=== PATIENT | male | born 1990 | race Caucasian/White ===

== ENCOUNTER 2017-12-13 17:59 | Emergency (ER) | END 2017-12-13 19:37 | disposition home or self-care (01) ==

== ENCOUNTER 2018-05-15 15:22 | Emergency (ER) | END 2018-05-15 17:03 | disposition home or self-care (01) ==

== ENCOUNTER 2018-05-17 08:23 | Emergency (ER) | END 2018-05-17 10:00 | disposition home or self-care (01) ==

== ENCOUNTER 2018-09-13 05:14 | Emergency (ER) | payer OTHER ==
[~2018-09-13] VITALS: Ht 180.3 cm; Wt 90.7 kg
[~2018-09-13 05:14] MED LIST: ACET-141 PO; CLOT30CR24 TOP; HYDR-4011 PO; IBUP-1542 PO; LIDO30CR2 TP; MUPI22OI2 TOP; NAPR-985 PO
[2018-09-13 05:17] VITALS: Ht 180.3 cm; Wt 90.7 kg
[2018-09-13] MEDS ORDERED: IBUPROFEN 600 MG TAB PO ONE (07:30)
[2018-09-13] MEDS ORDERED: HYDROCODONE/APAP (5/325) TAB PO ONE ×2 (08:00→09:30)
[2018-09-13] MEDS ORDERED: HYDR-4011 PO (09:10)
[2018-09-13] MEDS ORDERED: IBUP-1542 PO (09:10)
--- NOTE | 2018-09-13 09:16 | ERD ---
ER Documentation Chief Complaint Chief Complaint pain/swelling right hand, states punched a wall about 1 hour ago HPI 28-year-old male presents for right hand pain status post punching a wall 2 hours ago. Patient states he has intermittent pain. The right hand is also swollen over the third knuckle. Pain is described as sharp. No treatments tried at home. No other modifying factors noted. No significant past medical history. ROS All systems reviewed and are negative except as per history of present illness. Medications Home Meds Active Scripts Hydrocodone/Acetaminophen ([place] 5-325 Tablet) 1 Each Tablet, 1 TAB PO Q6H PRN for PAIN, #10 TAB Prov:DILLON BLAKE DO 09/13/18 Ibuprofen* (Motrin*) 600 Mg Tab, 600 MG PO Q6H PRN for PAIN AND OR ELEVATED TEMP, #30 TAB Prov:DILLON BLAKE DO 09/13/18 Lidocaine (Lmx 4) 30 Gm Cream.gm., 30 GM TP BID, #1 Prov:VIVIAN ROBERTS PA-C 05/17/18 Hydrocodone/Acetaminophen ([place] 5-325 Tablet) 1 Each Tablet, 1 TAB PO Q6H PRN for PAIN, #7 TAB Prov:VIVIAN ROBERTS PA-C 05/17/18 Clotrimazole* (Clotrimazole* AF) 1% - 30 Gm Cream.gm., 1 APPLIC TOP BID for 7 Days, TUB Prov:VIVIAN ROBERTS PA-C 05/17/18 Mupirocin* (Bactroban*) 2% -22 Gram Oint...g., 1 APPLIC TOP BID PRN for prn for 2 Days, #1 TUB SITE OF APPLICATION: Prov:DILLON BLAKE DO 05/15/18 Acetaminophen* (Acetaminophen*) 500 MG Extra Strength Tablet, 500 MG PO Q4H PRN for PAIN AND OR ELEVATED TEMP, #30 TAB Prov:DILLON BLAKE DO 05/15/18 Ibuprofen* (Motrin*) 600 Mg Tab, 600 MG PO Q6H PRN for PAIN AND OR ELEVATED TEMP, #30 TAB Prov:DILLON BLAKE DO 05/15/18 Naproxen* (Naprosyn*) 500 Mg Tablet, 500 MG PO BID PRN for PAIN AND/OR INFLAMMATION, #30 TAB Prov:FABBY BERGER PA-C 12/13/17 Allergies Allergies: Coded Allergies: No Known Allergy (Unverified , 05/15/18) PMhx/Soc Medical and Surgical Hx: pt denies Surgical Hx History of Surgery: No Anesthesia Reaction: No Hx Neurological Disorder: No Hx Respiratory Disorders: No Hx Cardiac Disorders: No Hx Psychiatric Problems: No Hx Miscellaneous Medical Probl: Yes (R fifth metacarpal fx) Hx Alcohol Use: Yes (OOC) Hx Substance Use: Yes (MJ) Hx Tobacco Use: No Smoking Status: Never smoker FmHx Family History: No coronary disease Physical Exam Vitals Vital Signs Date Temp Pulse Resp B/P (MAP) Pulse Ox O2 O2 Flow FiO2 Time Delivery Rate 09/13/18 98.2 80 18 126/69 98 05:17 (88) Physical Exam Const: No acute distress Resp: Clear to auscultation bilaterally Cardio: Regular rate and rhythm, no murmurs Skin: No petechiae or rashes Back: No midline or flank tenderness Neur: Awake and alert Psych: Normal Mood and Affect Upper Extremity - bilateral: Skin: No laceration, right hand swelling over the third knuckle area. Compartments: Soft Motor: Full active range of motion shoulder/elbow/wrist, decrease motion of the second and third finger Sensation: Intact shoulder/pinky/middle finger/thumb web space Bones: Nontender humerus/elbow/forearm/wrist, there is tenderness patient over the third metacarpal area Snuffbox: Tender to palpation Joints: Swelling noted over the third knuckle area. Pulses/Perfusion: 2+ radial, Capillary refill < 2 seconds Results 24 hrs Current Medications Medications Dose Sig/Rosita Start Time Status Last (Trade) Ordered Route PRN Stop Time Admin Dose Reason Admin Ibuprofen 600 mg ONCE ONCE 09/13/18 DC 09/13/18 (Motrin) PO 07:30 07:10 09/13/18 07:31 1 tab ONCE ONCE 09/13/18 DC 09/13/18 Acetaminophen PO 08:00 08:06 / 09/13/18 08:01 Hydrocodone Bitart ([place] (5/325)) 1 tab ONCE ONCE 09/13/18 Acetaminophen PO 09:30 / 09/13/18 09:31 Hydrocodone Bitart ([place] (5/325)) Procedures/MDM Medical Decision Making: Differential diagnosis includes but not limited to fracture, dislocation, muscle strain, ligamentous sprain. Patient appeared well on physical exam. There was tenderness over the right hand third metacarpal area Patient was neurovascularly intact ED course: Patient was given Motrin and [place]. Symptoms improved with treatment. Imaging: X-ray right hand 3V interpreted by me: Scaphoid: Normal Bones: No fracture Joints: No dislocation Foreign body: None Given right anatomic snuffbox tenderness palpation, patient twice a day thumb spica splint advised to return to the ER in 1 week for repeat x-ray of the right hand. Prescription(s): Patient given prescription for supportive medication(s) and [place] short course low-dose= Patient advised to follow up with PCP in 1-2 days. Patient advised to return to ED for new or worsening symptoms. Patient stable on discharge from the ED. The patient has been prescribed [place] during this encounter. The patient has been warned about the use of narcotics. The patient should not drive or operate heavy machinery while taking this medication. The patient was also warned about the addictive properties of narcotic medications. Narcan prescription was NOT provided given the following criteria 1. No more than 5 tablets of [place] 10 mg or 10 tablets of [place] 5 mg were prescribed. 2. Concomitant opiate and benzodiazepine prescriptions were not provided. 3. There is no obvious evidence of prior history of opiate abuse or overdose. Disclaimer: Inadvertent spelling and grammatical errors are likely due to EHR/dictation software use and do not reflect on the overall quality of patient care. Also, please note that the electronic time recorded on this note does not necessarily reflect the actual time of the patient encounter. Departure Diagnosis: Primary Impression: Injury of hand Encounter type: initial encounter Laterality: right Qualified Codes: S69.91XA - Unspecified injury of right wrist, hand and finger(s), initial encounter Condition: Fair Patient Instructions: Treating Hand Fractures, Sprain Hand Referrals: KWASI GLORIA MD (PCP) Additional Instructions: Call your primary care doctor TOMORROW for an appointment during the next 1-2 days.See the doctor sooner or return here if your condition worsens before your appointment time. Ice for swelling and pain pain medication as needed and as directed right thumb/hand place in splint to protect right scaphoid bone return to ER in one week for repeat right hand x-ray DILLON BLAKE DO Sep 13, 2018 09:16
[2018-09-13 09:31] VITALS: BP 128/76; PULSE 63; RESP 18
== END 2018-09-13 09:33 | disposition home or self-care (01) ==
LOC: FTE 05:14
DX: S69.91XA Unspecified injury of right wrist, hand and finger(s), initial encounter (principal); W22.01XA Walked into wall, initial encounter; Y92.9 Unspecified place or not applicable
CPT/HCPCS: 73130; Z7502; Z7610

== ENCOUNTER 2018-09-25 12:55 | Emergency (ER) | payer SELFPAY ==
[~2018-09-25] VITALS: Wt 89.9 kg
[2018-09-25 13:00] VITALS: BP 120/60; PULSE 80; RESP 18
== END 2018-09-25 15:00 | disposition left against medical advice (07) ==
LOC: FTE 12:55
DX: Z53.21 Procedure and treatment not carried out due to patient leaving prior to being seen by health care provider (principal)

== ENCOUNTER 2018-10-25 08:59 | Emergency (ER) | payer OTHER ==
[~2018-10-25] VITALS: Ht 177.8 cm; Wt 88.5 kg
[2018-10-25 09:02] VITALS: BP 134/63; PULSE 78; RESP 16; Ht 177.8 cm; Wt 88.5 kg
--- NOTE | 2018-10-25 09:28 | ERD ---
ER Documentation Chief Complaint Chief Complaint pt is bib family with c/o abd pain starting 2 days ago with nausea HPI 28-year-old female with no reported past medical history, recent circumcision this past Monday who presents with complaint of epigastric abdominal pain over the past 2 days. Describes sharp pain without radiation, associated with nausea and single episode of vomiting this morning. States is been taking pain medications post circumcision. Was taking [place] and ran out Monday morning. Reports over the past 2 days taken over 20 pills of Tylenol secondary to pain. Patient alert and oriented with normal triage vital signs and otherwise denies chest pain, shortness of breath, dyspnea, diarrhea, urinary. symptoms. He denies any allergies to medication. Denies active alcohol or substance abuse. ROS All systems reviewed and are negative except as per history of present illness. Medications Home Meds Active Scripts Ibuprofen* (Motrin*) 800 Mg Tab, 800 MG PO Q6H PRN for PAIN AND OR ELEVATED TEMP, #30 TAB Prov:CATHERINE MIKE PA-C 10/25/18 Hydrocodone/Acetaminophen ([place] 5-325 Tablet) 1 Each Tablet, 1 TAB PO Q6H PRN for PAIN, #10 TAB Prov:DILLON BLAKE DO 09/13/18 Ibuprofen* (Motrin*) 600 Mg Tab, 600 MG PO Q6H PRN for PAIN AND OR ELEVATED TEMP, #30 TAB Prov:DILLON BLAKE DO 09/13/18 Lidocaine (Lmx 4) 30 Gm Cream.gm., 30 GM TP BID, #1 Prov:VIVIAN ROBERTS PA-C 05/17/18 Hydrocodone/Acetaminophen ([place] 5-325 Tablet) 1 Each Tablet, 1 TAB PO Q6H PRN for PAIN, #7 TAB Prov:VIVIAN ROBERTS PA-C 05/17/18 Clotrimazole* (Clotrimazole* AF) 1% - 30 Gm Cream.gm., 1 APPLIC TOP BID for 7 Days, TUB Prov:VIVIAN ROBERTS PA-C 05/17/18 Mupirocin* (Bactroban*) 2% -22 Gram Oint...g., 1 APPLIC TOP BID PRN for prn for 2 Days, #1 TUB SITE OF APPLICATION: Prov:DILLON BLAKE DO 05/15/18 Acetaminophen* (Acetaminophen*) 500 MG Extra Strength Tablet, 500 MG PO Q4H PRN for PAIN AND OR ELEVATED TEMP, #30 TAB Prov:DILLON BLAKE DO 05/15/18 Ibuprofen* (Motrin*) 600 Mg Tab, 600 MG PO Q6H PRN for PAIN AND OR ELEVATED TEMP, #30 TAB Prov:DILLON BLAKE DO 05/15/18 Naproxen* (Naprosyn*) 500 Mg Tablet, 500 MG PO BID PRN for PAIN AND/OR INFLAMMATION, #30 TAB Prov:FABBY BERGER PA-C 12/13/17 Allergies Allergies: Coded Allergies: No Known Allergy (Unverified , 05/15/18) PMhx/Soc History of Surgery: No Anesthesia Reaction: No Hx Neurological Disorder: No Hx Respiratory Disorders: No Hx Cardiac Disorders: No Hx Psychiatric Problems: No Hx Miscellaneous Medical Probl: Yes (R fifth metacarpal fx) Hx Alcohol Use: Yes (OOC) Hx Substance Use: Yes (MJ) Hx Tobacco Use: No Smoking Status: Current some day smoker FmHx Family History: No diabetes, No coronary disease, No other Physical Exam Vitals Vital Signs Date Temp Pulse Resp B/P (MAP) Pulse Ox O2 O2 Flow FiO2 Time Delivery Rate 10/25/18 98.7 78 16 134/63 97 09:02 (86) Physical Exam I have reviewed the triage vital signs. Const: Well nourished, well developed, appears stated age Eyes: PERRL, no conjunctival injection HENT: NCAT, Neck supple without meningismus CV: RRR, Warm, well-perfused extremities RESP: CTAB, Unlabored respiratory effort GI: soft, tender to deep palpation to epi gastrium, no tenderness in the right upper quadrant,, non-distended, no masses MSK: No gross deformities appreciated Skin: Warm, dry. No rashes Neuro: grossly non focal Psych: Appropriate mood and affect. Result Diagram: 10/25/1892510/25/18925 Results 24 hrs Laboratory Tests Test 10/25/18 09:26 10/25/18 09:36 White Blood Count 7.3 10^3/ul Red Blood Count 5.14 10^6/ul Hemoglobin 15.8 g/dl Hematocrit 46.0 % Mean Corpuscular Volume 89.5 fl Mean Corpuscular Hemoglobin 30.7 pg Mean Corpuscular Hemoglobin Concent 34.3 g/dl Red Cell Distribution Width 12.1 % Platelet Count 269 10^3/UL Mean Platelet Volume 9.8 fl Immature Granulocytes % 0.300 % Neutrophils % 65.3 % Lymphocytes % 26.1 % Monocytes % 7.4 % Eosinophils % 0.5 % Basophils % 0.4 % Nucleated Red Blood Cells % 0.0 /100WBC Immature Granulocytes # 0.020 10^3/ul Neutrophils # 4.8 10^3/ul Lymphocytes # 1.9 10^3/ul Monocytes # 0.5 10^3/ul Eosinophils # 0.0 10^3/ul Basophils # 0.0 10^3/ul Nucleated Red Blood Cells # 0.0 10^3/ul Prothrombin Time 12.3 Sec Prothrombin Time Ratio 1.0 INR International Normalized Ratio 0.90 Activated Partial Thromboplast Time 37.8 Sec Urine Color STRAW Urine Clarity CLEAR Urine pH 6.0 Urine Specific [place] 1.009 Urine Ketones NEGATIVE mg/dL Urine Nitrite NEGATIVE mg/dL Urine Bilirubin NEGATIVE mg/dL Urine Urobilinogen NEGATIVE mg/dL Urine Leukocyte Esterase NEGATIVE Hal/ul Urine Hemoglobin NEGATIVE mg/dL Urine Glucose NEGATIVE mg/dL Urine Total Protein NEGATIVE mg/dl Sodium Level 141 mmol/L Potassium Level 4.2 mmol/L Chloride Level 107 mmol/L Carbon Dioxide Level 26 mmol/L Anion Gap 8 Blood Urea Nitrogen 8 mg/dl Creatinine 0.79 mg/dl Est Glomerular Filtrat Rate mL/min > 60 mL/min Glucose Level 115 mg/dl Calcium Level 9.4 mg/dl Total Bilirubin 0.7 mg/dl Direct Bilirubin 0.00 mg/dl Indirect Bilirubin 0.7 mg/dl Aspartate Amino Transf (AST/SGOT) 17 IU/L Alanine Aminotransferase (ALT/SGPT) 15 IU/L Alkaline Phosphatase 62 IU/L Total Protein 7.3 g/dl Albumin 4.3 g/dl Globulin 3.00 g/dl Albumin/Globulin Ratio 1.43 Lipase 71 U/L Acetaminophen Level < 10.0 ug/ml Current Medications Medications Dose Sig/Rosita Start Time Status Last (Trade) Ordered Route PRN Stop Time Admin Dose Reason Admin Ketorolac 30 mg ONCE STAT 10/25/18 DC 10/25/18 Tromethamine IM 10:04 10/25/18 10:07 (Toradol) 10:05 Procedures/MDM 28-year-old male presents with complaint of epigastric abdominal pain after ingesting large doses of Tylenol over the past 2 days. Concern for acute Tylenol overdose. Patient's liver function test was and other labs unremark able. I have a very low suspicion for appendicitis, ischemic bowel, bowel perforation, or any other life threatening disease. I have discussed with the patient the level of uncertainty with undifferentiated abdominal pain and clearly explained the need to follow-up as noted on the discharge instructions, or return to the Emergency Department immediately if the pain worsens, develops fever, persistent and uncontrollable vomiting, or for any new symptoms or concerns. ED course: Labs: Unremarkable, LFTs normal range, renal function preserved We will discharge with instructions not to continue any Tylenol administration, discharge with Rx for ibuprofen, patient advised to follow-up with surgeon as well as PMD DISPOSITION PLAN: We discussed follow up with the patient's primary care doctor within 24 to 48 hours. Patient counseled regarding my diagnostic impression and care plan. Prior to discharge all questions answered. Pt agrees with treatment plan and understands strict return precautions. Precautionary instructions provided including instructions to return to the ER if not improving or for any worsening or changing symptoms or concerns. Disclaimer: Inadvertent spelling and grammatical errors are likely due to EHR/dictation software use and do not reflect on the overall quality of patient care. Also, please note that the electronic time recorded on this note does not necessarily reflect the actual time of the patient encounter. Departure Diagnosis: Primary Impression: Abdominal pain Condition: Stable Patient Instructions: Abdominal Pain Referrals: KWASI GLORIA MD (PCP) Additional Instructions: Call your primary care doctor TOMORROW for an appointment during the next 2-3 days.See the doctor sooner or return here if your condition worsens before your appointment time. CATHERINE MIKE PA-C Oct 25, 2018 09:28
[2018-10-25] MEDS ORDERED: KETOROLAC 30 MG INJ IM STA (10:04)
[2018-10-25] MEDS ORDERED: IBUP800T48 PO (10:15)
== END 2018-10-25 14:33 | disposition home or self-care (01) ==
LOC: FTE 08:59
DX: R10.13 Epigastric pain (principal); F17.210 Nicotine dependence, cigarettes, uncomplicated
CPT/HCPCS: 36415; 80053; 80307; 81003; 83690; 85025; 85610; 85730; 96372; J1885; Z7502

== ENCOUNTER 2019-02-07 08:48 | Emergency (ER) | payer OTHER ==
[~2019-02-07] VITALS: Ht 177.8 cm; Wt 88.6 kg
[~2019-02-07 08:48] MED LIST changes: +ACET500C5 PO; +AMI10 PO; +AMOX1TAB10 PO; +CEPH-443 PO; +IBUP800T48 PO; +SUCR1TAB56 PO; +TRAM50TA2 PO
[2019-02-07 09:01] VITALS: BP 118/75; PULSE 71; RESP 18; Ht 177.8 cm; Wt 88.6 kg
[2019-02-07] MEDS ORDERED: HYDROCODONE/APAP (5/325) TAB PO ONE (10:30)
== END 2019-02-07 10:33 | disposition home or self-care (01) ==
LOC: FTE 08:48
DX: K08.89 Other specified disorders of teeth and supporting structures (principal)
CPT/HCPCS: Z7502; Z7610; 99283

== ENCOUNTER 2019-03-14 20:39 | Emergency (ER) | payer OTHER ==
[~2019-03-14] VITALS: Ht 177.8 cm; Wt 88.4 kg
[2019-03-14 20:41] VITALS: BP 137/82; PULSE 109; RESP 20; Ht 177.8 cm; Wt 88.4 kg
[2019-03-14] MEDS ORDERED: HYDROCODONE/APAP (10/325) TAB PO ONE (21:30)
[2019-03-14] MEDS ORDERED: DIPHTH/TET/ACEL PERTUSS (ADULT) 0.5 ML VIAL IM* ONE (21:30)
[2019-03-14] MEDS ORDERED: LIDOCAINE 1% (MDV) 20 ML INJ SC ONE (23:00)
[2019-03-14] MEDS ORDERED: BACITRACIN 0.5%/ZINC 28.35 GM OINT TOP ONE (23:00)
== END 2019-03-15 00:19 | disposition home or self-care (01) ==
LOC: FTE 20:39
DX: S61.210A Laceration without foreign body of right index finger without damage to nail, initial encounter (principal); S61.212A Laceration without foreign body of right middle finger without damage to nail, initial encounter; W22.8XXA Striking against or struck by other objects, initial encounter; Y92.9 Unspecified place or not applicable; Z23 Encounter for immunization
CPT/HCPCS: 12002; 73110; 73130; 90715; Z7610; 90471

== ENCOUNTER 2019-03-20 08:43 | Emergency (ER) | payer OTHER ==
[~2019-03-20] VITALS: Ht 177.8 cm; Wt 89.0 kg
[2019-03-20 08:50] VITALS: BP 119/78; PULSE 75; RESP 18; Ht 177.8 cm; Wt 89.0 kg
== END 2019-03-20 10:21 | disposition home or self-care (01) ==
LOC: FTE 08:43
DX: Z48.01 Encounter for change or removal of surgical wound dressing (principal)
CPT/HCPCS: 73130; Z7502

== ENCOUNTER 2019-03-27 14:30 | Emergency (ER) | payer SELFPAY | END 2019-03-27 15:43 | disposition left against medical advice (07) | LOC: E/R 14:30 | DX: Z53.21 Procedure and treatment not carried out due to patient leaving prior to being seen by health care provider (principal) ==